=== PATIENT | female | born 1930 | race African-American/Black ===

== ENCOUNTER 2019-04-14 08:27 | Observation (INO) | payer OTHER, MEDICARE ==
--- NOTE | 2019-04-14 08:54 | PDOC ---
History of Present Illness - General Chief Complaint: Injury Stated Complaint: FALL/Dehydrated/Poor Appetite Time Seen by Provider: 04/14/19 08:54 - History of Present Illness Initial Comments: 88 year old with PMH of HTN presenting with globus sensation x 2 weeks after drinking clove water and episode of lightheadedness and fall this morning. States that she has been very weak and dehydrated over the past two weeks because of a sensation as if there is something stuck in her throat after eating this clove water concoction. She has had this mixture in the past with cinnamon as she believes it helps her with her daily joint pains. 04/14/19 10:52 Past History - Past Medical History Allergies/Adverse Reactions: Allergies Allergy/AdvReac Type Severity Reaction Status Date / Time No Known Allergies Allergy Verified 04/14/19 08:29 Home Medications: Ambulatory Orders Amlodipine Besylate 5 mg PO DAILY 04/14/19 Mirtazapine 7.5 mg PO HS 04/14/19 Cardiac Disorders: Yes (LEAKY VALVE) COPD: No HTN: Yes (CONTROLLED) - Immunization History Immunization Up to Date: No - Psycho Social/Smoking Cessation Hx Smoking History: Never smoked Have you smoked in the past 12 months: No Information on smoking cessation initiated: No Hx Alcohol Use: No Drug/Substance Use Hx: No *Physical Exam - Vital Signs Last Vital Signs Temp Pulse Resp BP Pulse Ox 70 16 125/73 98 04/14/19 08:31 04/14/19 08:31 04/14/19 08:31 04/14/19 08:31 ED Treatment Course - LABORATORY CBC & Chemistry Diagram: 04/14/19 10:04 04/14/19 10:04 Medical Decision Making - Medical Decision Making 88 year old with weakness/ presyncope with fall and globus sensation with continued weakness despite 1 L NS. Cause of weakness is likely malnutrition/ dehydration. Although gait improved, she is still too weak to ambulate without assistance or monitoring. 04/14/19 14:49 Discharge - Discharge Information Condition: Stable - Follow up/Referral Referrals: Jasson Huston MD [Primary Care Provider] - - Patient Discharge Instructions - Post Discharge Activity
[2019-04-14 10:32] LABS: BASO % 0.2 % (0-2.0); EOS % 0.4 % (0-4.5); HEMATOCRIT 49.2 % (32.4-45.2); HEMOGLOBIN 16.1 GM/dL (10.7-15.3); MCH 31.2 pg (25.7-33.7); MCHC 32.8 g/dl (32.0-36.0); MEAN CELL VOLUME 95.4 fl (80-96); MEAN PLT VOLUME 9.6 fl (7.5-11.1); NEUT % 86.4 % (42.8-82.8); PLATELET COUNT 166 K/MM3 (134-434); RBC 5.16 M/mm3 (3.60-5.2); RDW 13.2 % (11.6-15.6); WHITE BLOOD COUNT 7.9 K/mm3 (4.0-10.0)
[2019-04-14 11:04] LABS: ALBUMIN 3.5 g/dl (3.4-5.0); BILIRUBIN,TOTAL 1.1 mg/dL (0.2-1); BLOOD UREA NITROGEN 20.9 mg/dL (7-18); CALCIUM 10.3 mg/dL (8.5-10.1); CREATININE 1.1 mg/dL (0.55-1.3); POTASSIUM 4.7 mmol/L (3.5-5.1); TOT PROT 6.9 g/dl (6.4-8.2)
[2019-04-14 11:31] LABS: INR 0.97 (0.83-1.09); PROTHROMBIN TIME (PATIENT) 11.4 SEC (9.7-13.0)
[2019-04-14] MEDS ORDERED: SODIUM CHLORIDE 1,000 ML IV ONE (11:32)
--- NOTE | 2019-04-14 11:38 | CONSULT ---
Admitting History and Physical - Admission History of Present Illness: 88 year old with PMH of HTN presenting with globus sensation x 2 weeks after drinking clove water CXR (-) Pt developed a fear of eating/drinking following an incident where she accidentally swallowed a clove while drinking clove water. She has been seen by ENT, Dr Temple as well as a Psychiatrist who prescribed a pill which she only took once after reading the side effects. Her family is concerned, trying to encourage her to eat/drink with rare success. Selected Entries 04/14/19 08:31 Blood Pressure 125/73 Weight 86 lb Laboratory Tests 04/14/19 04/14/19 10:04 10:04 WBC 7.9 BUN 20.9 H - Smoking History Smoking history: Never smoked Have you smoked in the past 12 months: No - Alcohol/Substance Use Hx Alcohol Use: No History - Admission Reason For Visit: FALL - Diagnostics X-ray: Report Reviewed (CXR (-)) Modified Barium Swallow: Report Reviewed (04/27/18 mbs (-). r/o laryngopharyngeal reflux. Rec made.) - General Mental Status: Alert and Oriented, Awake and Alert, Able to Follow Commands, Anxious Attention: Intact Ability to Follow Directions: Excellent Head/Neck Control: WFL - Hearing Hearing: Functional Speech Evaluation - Communication Primary Language: KOREAN Communication: Yes: Within Normal Limits Oral Expression Ability: Yes: No Impairment - Speech Production Able to Make Needs Known: Yes: WNL Intelligibility: Yes: WNL - Speech Characteristics Voice Loudness: Normal Voice Pitch: Yes: Normal Voice Phonatory-based Quality: Yes: Normal Speech Pattern: Normal Speech Clarity: < 100% Nasal Resonance: Normal Articulation: Yes: Precise Rate of Speech: Intact - Language/Auditory Comprehension Follows: Yes: 2 Stage Simple Commands - Language/Verbal Expression Able to Respond to Simple Queries: Yes: WNL Able to Communicate Wants and Needs: Yes: WNL Functional Communication Status: Yes: WNL - Swallow Evaluation/Bedside Assessment Current Nutritional Intake: NPO Oral Secretions: Yes: WFL Dentition: Yes: Adequate, Missing Teeth Facial Symmetry at Rest: Symmetrical Facial Symmetry on Retraction: Symmetrical Facial Movement: Controlled Sensation: Normal Against Resistance Opening: Normal Against Resistance Closing: Normal Pucker Lips: Normal Smile: Normal Lingual Movement: Normal, Symmetric Lingual Speed of Movement: Normal Lingual Movement Strgth Against Opposition: Normal Lingual Movement Characteristics: Normal Velopharyngeal Movement: Normal Laryngeal Elevation: WFL Rate of Intake: WFL Bolus Size: WFL Labial Seal: WFL Oral Prep Time: WFL A-P Transit: WFL Timing of Swallow: WFL Coughing/Throat Clear: No Change in Voice: No Recommendations - Speech Evaluation, Impression/Plan Impression: Fear of swallowing after swallowing a clove. r/o Dysphagia. Globus sensation? LPR, Globus Hystericus/Conversion disorder. Anxious. Oriented and appropriate - Dysphagia Impressions/Plan Dysphagia Impressions: Ongoing Evaluation *Silent aspiration: cannot be R/O at bedside Recommendations: CARRIE Guido
--- NOTE | 2019-04-14 11:39 | PDOC ---
Attending Attestation - Resident Resident Name: Kathy Cerna - ED Attending Attestation I have performed the following: I have examined & evaluated the patient, The case was reviewed & discussed with the resident, I agree w/resident's findings & plan - HPI HPI: 04/14/19 11:34 88-year-old female with history of mitral valve prolapse and hypertension well- controlled, high functioning with full ADLs presents brought in family with episode of lightheadedness near syncope this morning. Patient was in her usual state of normal health until about 1 or 2 weeks ago when she swallowed a clove, since then has been having difficulty swallowing with decreased oral intake and self-admitted dehydration. She saw ENT and was noted to have slight irritation but no blockage or obstruction, was scheduled to see speech and swallow therapist. In the setting, was standing in her kitchen this morning, developed lightheadedness without loss of consciousness or fall, lowered herself to the ground without injury, presents for evaluation. Denies any cardiopulmonary complaints, denies any volume loss such as vomiting or diarrhea, denies any infectious complaints such as fever/chills/dysuria. last cardiac eval per report with Dr. Aguilar this year, had ekg (lbbb) and echo in office. - Physicial Exam PE: 04/14/19 11:35 Exam is atraumatic Dry mucosa Heart is regular without audible murmur, lungs are clear with slightly decreased breath sounds at the bases bilaterally Abdomen benign No edema Neurologically intact - Medical Decision Making 04/14/19 11:35 88-year-old female with episode of lightheadedness and near syncope in the setting of dehydration secondary to difficulty swallowing. Hemodynamically stable here, low suspicion for arrhythmia or ACS, no traumatic injury. Labs, urinalysis EKG, chest x-ray IV fluid rehydration Reassess. Patient is currently clinically orthostatic, concern is for inability to tolerate p.o. Will discuss with swallow therapy, rehydrate, and reassess. Discuss dispo with Dr. Huston and Dr. Aguilar Heart Score/ECG Review #1 ECG reviewed & interpreted by me at: 10:13 General ECG Interpretation: Sinus Rhythm (with APCs noted), Normal Rate (75), Normal Intervals (LBBB (per pt report, old), qtc 473), No acute ischemic changes
--- NOTE | 2019-04-14 17:40 | HP ---
CHIEF COMPLAINT: poor po intake, dizziness, inability to swallow PCP: HISTORY OF PRESENT ILLNESS: Patient is a 88 year old female with a significant past medical history of hypertension who presents to the ED with globus sensation x 2 weeks after drinking clove water. She also reports an episode of lightheadedness and fall this morning. Patient has been feeling weaker and dehydrated over the past two weeks. She has had poor PO intake because of the continued sensation as if there is something stuck in her throat. Patient states symptoms of globus sensation occurred after she drank clove water which helps her with her joint pain. She reports concentrated urine, dry tongue and poor skin turgor. ER course was notable for: (1) mbs (2) clinical dehydration (3) Recent Travel: PAST MEDICAL HISTORY: PAST SURGICAL HISTORY: Social History: Smoking: none Alcohol: none Drugs: none Allergies No Known Allergies Allergy (Verified 04/14/19 08:29) HOME MEDICATIONS: Home Medications Medication Instructions Recorded Amlodipine Besylate 5 mg PO DAILY 04/14/19 Mirtazapine 7.5 mg PO HS 04/14/19 REVIEW OF SYSTEMS PHYSICAL EXAMINATION Vital Signs - 24 hr 04/14/19 04/14/19 04/14/19 08:31 12:30 13:00 Temperature Pulse Rate 70 Pulse Rate [ 88 Left] Respiratory 16 17 Rate Blood Pressure 125/73 Blood Pressure 124/78 [Left Arm] O2 Sat by Pulse 98 97 99 Oximetry (%) 04/14/19 17:07 Temperature 97.7 F Pulse Rate Pulse Rate [ 100 H Left] Respiratory 17 Rate Blood Pressure Blood Pressure 118/64 [Left Arm] O2 Sat by Pulse 99 Oximetry (%) GENERAL: Awake, alert, and fully oriented, in no acute distress. pleasant elderly female in no acute distress. HEAD: Normal with no signs of trauma. EYES: Pupils equal, round and reactive to light, extraocular movements intact, sclera anicteric, conjunctiva clear. No lid lag. EARS, NOSE, THROAT: Ears normal, nares patent, oropharynx clear without exudates. Moist mucous membranes. NECK: Normal range of motion, supple without lymphadenopathy, JVD, or masses. LUNGS: Breath sounds equal, clear to auscultation bilaterally. HEART: Regular rate and rhythm, ABDOMEN: Soft, nontender, not distended, normoactive bowel sounds, no guarding, no rebound, no masses. No hepatomegaly or splenomegaly. MUSCULOSKELETAL: Normal range of motion at all joints. No bony deformities or tenderness. No CVA tenderness. UPPER EXTREMITIES: No peripheral edema. LOWER EXTREMITIES: No peripheral edema. NEUROLOGICAL: Normal speech. Normal gait. PSYCHIATRIC: Cooperative. Good eye contact. Appropriate mood and affect. SKIN: dry Laboratory Results - last 24 hr 04/14/19 04/14/19 04/14/19 10:04 10:04 10:04 WBC 7.9 RBC 5.16 Hgb 16.1 H Hct 49.2 H MCV 95.4 MCH 31.2 MCHC 32.8 RDW 13.2 Plt Count 166 MPV 9.6 Absolute Neuts (auto) 6.8 Neutrophils % 86.4 H Lymphocytes % 7.0 L Monocytes % 6.0 Eosinophils % 0.4 Basophils % 0.2 Nucleated RBC % 0 PT with INR 11.40 INR 0.97 Sodium 139 Potassium 4.7 Chloride 102 Carbon Dioxide 25 Anion Gap 12 BUN 20.9 H Creatinine 1.1 Est GFR (CKD-EPI)AfAm 52.28 Est GFR (CKD-EPI)NonAf 45.11 Random Glucose 85 Calcium 10.3 H Total Bilirubin 1.1 H AST 27 ALT 16 Alkaline Phosphatase 109 Troponin I Total Protein 6.9 Albumin 3.5 04/14/19 10:04 WBC RBC Hgb Hct MCV MCH MCHC RDW Plt Count MPV Absolute Neuts (auto) Neutrophils % Lymphocytes % Monocytes % Eosinophils % Basophils % Nucleated RBC % PT with INR INR Sodium Potassium Chloride Carbon Dioxide Anion Gap BUN Creatinine Est GFR (CKD-EPI)AfAm Est GFR (CKD-EPI)NonAf Random Glucose Calcium Total Bilirubin AST ALT Alkaline Phosphatase Troponin I < 0.02 Total Protein Albumin ASSESSMENT/PLAN: Family Medical History Family History: Denies Problem List - Problem (1) Globus sensation Assessment/Plan: mbs noted, started on soft diet and monitor speech and swallow following start ivf hydration overnight and repeat a.m. labs aspiration precautions. Code(s): R09.89 - OTH SYMPTOMS AND SIGNS INVOLVING THE CIRC AND RESP SYSTEMS (2) Hypertension Assessment/Plan: continue home meds Code(s): I10 - ESSENTIAL (PRIMARY) HYPERTENSION (3) Dizziness Assessment/Plan: gait steady on exam, no dizziness physical therapy Code(s): R42 - DIZZINESS AND GIDDINESS Visit type - Emergency Visit Emergency Visit: Yes ED Registration Date: 04/14/19 Care time: The patient presented to the Emergency Department on the above date and was hospitalized for further evaluation of their emergent condition. - New Patient This patient is new to me today: Yes Date on this admission: 04/14/19 - Critical Care Critical Care patient: No
[2019-04-14] MEDS ORDERED: SODIUM CHLORIDE 1,000 ML IV SCH (18:15)
[2019-04-14 18:19] VITALS: BMI 16.9
[2019-04-14] MEDS ORDERED: ACETAMINOPHEN 325 MG TABLET (FP) PO PRN (18:34)
[2019-04-14 19:36] LABS: EPI CELLS 8.5 /HPF (0-5/HPF); HYALINE CASTS 43 /lpf (0-8); URINE APPEARANCE CLOUDY; URINE BACTERIA 32.3 /hpf (NEGATIVE); URINE BILIRUBIN NEGATIVE (NEGATIVE); URINE COLOR DK YELLOW; URINE GLUCOSE (UA) NEGATIVE (NEGATIVE); URINE KETONE 2+ (NEGATIVE); URINE LEUK ESTERASE TRACE (NEGATIVE); URINE NITRITE NEGATIVE (NEGATIVE); URINE PROTEIN TRACE (NEGATIVE); URINE RBC 2 /hpf (0-4); URINE WBC 12 /hpf (0-5)
[2019-04-14] MEDS ORDERED: MIRTAZAPINE 15 MG TABLET (FP) PO SCH (22:00)
[2019-04-15 06:14] VITALS: TEMP 97.8
[2019-04-15 08:26] LABS: HEMATOCRIT 39.8 % (32.4-45.2); HEMOGLOBIN 13.4 GM/dL (10.7-15.3); MCH 31.5 pg (25.7-33.7); MCHC 33.7 g/dl (32.0-36.0); MEAN CELL VOLUME 93.4 fl (80-96); MEAN PLT VOLUME 9.8 fl (7.5-11.1); PLATELET COUNT 139 K/MM3 (134-434); RBC 4.25 M/mm3 (3.60-5.2); RDW 13.1 % (11.6-15.6); WHITE BLOOD COUNT 3.6 K/mm3 (4.0-10.0)
[2019-04-15 09:31] LABS: BLOOD UREA NITROGEN 14.5 mg/dL (7-18); CALCIUM 9.1 mg/dL (8.5-10.1); CREATININE 0.8 mg/dL (0.55-1.3); POTASSIUM 3.6 mmol/L (3.5-5.1)
[2019-04-15] MEDS ORDERED: amLODIPine BESYLATE 5 MG TABLET (FP) PO SCH (10:00)
[2019-04-15 10:36] VITALS: PULSE 75
--- NOTE | 2019-04-15 12:06 | PN ---
Progress Note, TRAVELING INVENTORY ASSOCIATE - Note Progress Note: Alert, oriented, avoiding eye contact, feels sad, says she "doesn't know how she 'll get from one point to another". Eating more/tolerating diet. Selected Entries 04/14/19 04/14/19 04/14/19 17:07 18:11 22:00 Breakfast Supper 50% Temperature 97.7 F 98.2 F 04/15/19 04/15/19 04/15/19 06:00 10:29 10:35 Breakfast 75% Supper Temperature 97.8 F 97.8 F Laboratory Tests 04/15/19 06:35 WBC 3.6 L Reviewed with PRECISION INSPECTOR/PCP.
--- NOTE | 2019-04-15 12:45 | PN ---
Physical Exam: SUBJECTIVE: Patient seen and examined at the bedside. tolerating diet without difficulty, denies chest pain or shortness of breath. OBJECTIVE: she is noted to be more withdrawn today, less interactive appears clinically depressed discussed with her PCP Dr. Huston who informed me that patient diagnosed with depression and started on remeron a few weeks ago. unsure of compliance. she is now more withdrawn and not interactive. will ask psych to evaluate as she may need her medications adjusted. currently on remeron. BP elevated today, therefore IVF discontinued. Vital Signs Period Temp Pulse Resp BP Sys/Ruiz Pulse Ox Last 24 Hr 97.7 F-98.2 F 69-100 17-107 106-163/52-104 97-99 GENERAL: Awake, alert, withdrawan. pleasant elderly female in no acute distress. HEAD: Normal with no signs of trauma. EYES: Pupils equal, round and reactive to light, extraocular movements intact, sclera anicteric, conjunctiva clear. No lid lag. EARS, NOSE, THROAT: Ears normal, nares patent, oropharynx clear without exudates. Moist mucous membranes. NECK: Normal range of motion, supple without lymphadenopathy, JVD, or masses. LUNGS: Breath sounds equal, diminished at the bases. HEART: Regular rate and rhythm, ABDOMEN: Soft, nontender, not distended, normoactive bowel sounds, no guarding, no rebound, no masses. No hepatomegaly or splenomegaly. MUSCULOSKELETAL: Normal range of motion at all joints. No bony deformities or tenderness. No CVA tenderness. UPPER EXTREMITIES: No peripheral edema. LOWER EXTREMITIES: No peripheral edema. NEUROLOGICAL: Normal speech. Normal gait. anxious, withdrawn, less interactive PSYCHIATRIC: Cooperative. Good eye contact. Appropriate mood and affect. SKIN: dry Laboratory Results - last 24 hr 04/14/19 04/15/19 04/15/19 18:25 06:35 06:35 WBC 3.6 L RBC 4.25 Hgb 13.4 Hct 39.8 D MCV 93.4 MCH 31.5 MCHC 33.7 RDW 13.1 Plt Count 139 MPV 9.8 Sodium 144 Potassium 3.6 Chloride 110 H Carbon Dioxide 27 Anion Gap 7 L BUN 14.5 Creatinine 0.8 Est GFR (CKD-EPI)AfAm 76.83 Est GFR (CKD-EPI)NonAf 66.29 Random Glucose 77 Calcium 9.1 Urine Color Dk yellow Urine Appearance Cloudy Urine pH 5.0 Ur Specific [place] 1.024 Urine Protein Trace Urine Glucose (UA) Negative Urine Ketones 2+ H Urine Blood Negative Urine Nitrite Negative Urine Bilirubin Negative Urine Urobilinogen 1.0 Ur Leukocyte Esterase Trace Urine WBC (Auto) 12 Urine RBC (Auto) 2 Urine Casts (Auto) 43 U Pathogenic Cast Auto U Epithel Cells (Auto) 8.5 U Sm Round Cell (Auto) None Urine Bacteria (Auto) 32.3 Active Medications Generic Name Dose Route Start Last Admin Trade Name Freq PRN Reason Stop Dose Admin Acetaminophen 650 mg 04/14/19 18:34 Tylenol - PO Q6H PRN PAIN LEVEL 6-10 Amlodipine Besylate 5 mg 04/15/19 10:00 04/15/19 10:15 Norvasc - PO 5 mg DAILY JOSE Administration Mirtazapine 7.5 mg 04/14/19 22:00 04/14/19 21:35 Remeron - PO 7.5 mg HS JOES Administration ASSESSMENT/PLAN: Problem List - Problems (1) Globus sensation Assessment/Plan: mbs noted, started on soft diet and tolerating. no difficulty with swallowing reported. speech and swallow following stof ivf as pt bp is elevated. a.m. labs shows improvement of dehydration aspiration precautions maintained Code(s): R09.89 - OTH SYMPTOMS AND SIGNS INVOLVING THE CIRC AND RESP SYSTEMS (2) Hypertension Assessment/Plan: continue home meds of amlodopine 5mg increase if bp remains elevated stop ivf. Code(s): I10 - ESSENTIAL (PRIMARY) HYPERTENSION (3) Dizziness Assessment/Plan: ambulated with PT, but patient did not participate fully. continue PT. patient had falls at home, but denies hitting her head. son confirms she did not hit her head. Code(s): R42 - DIZZINESS AND GIDDINESS (4) Depression Assessment/Plan: started on remeron 7.5mg as an outpatient. psych consulted for further recommendations. depression likely contributing to decreased PO intake Code(s): F32.9 - MAJOR DEPRESSIVE DISORDER, SINGLE EPISODE, UNSPECIFIED (5) Dehydration Assessment/Plan: resolved. encourage oral hydration. Code(s): E86.0 - DEHYDRATION (6) DVT prophylaxis Assessment/Plan: SCDs Code(s): Z29.9 - ENCOUNTER FOR PROPHYLACTIC MEASURES, UNSPECIFIED Visit type - Emergency Visit Emergency Visit: Yes ED Registration Date: 04/14/19 Care time: The patient presented to the Emergency Department on the above date and was hospitalized for further evaluation of their emergent condition. - New Patient This patient is new to me today: No - Critical Care Critical Care patient: No - Discharge Referral Referred to [facility] No
[2019-04-15 12:48] VITALS: BP 147/80
--- NOTE | 2019-04-15 12:56 | EKG ---
Test Reason : Blood Pressure : / mmHG Vent. Rate : 075 BPM Atrial Rate : 075 BPM P-R Int : 160 ms QRS Dur : 142 ms QT Int : 424 ms P-R-T Axes : -05 -58 058 degrees QTc Int : 473 ms SINUS RHYTHM WITH PREMATURE ATRIAL COMPLEXES IN A PATTERN OF BIGEMINY LEFT AXIS DEVIATION LEFT BUNDLE BRANCH BLOCK ABNORMAL ECG WHEN COMPARED WITH ECG OF 19-JAN-2002 09:26, PREMATURE ATRIAL COMPLEXES ARE NOW PRESENT Confirmed by DELFNIO WOLF MD ([id number]) on 04/15/2019 12:56:21 PM Referred By: Confirmed By:DELFINO WOLF MD
--- NOTE | 2019-04-15 17:17 | CON.PSY ---
Psychiatry Consult Chief Complaint: 88 [place]ang[place] old female seen for Psych eval. Admitted with Dehydration and ? weight Loss. Patient reports feeling depressed. on Remeron , reports difficulty swallowing. Symptoms: reports: Depressed Mood, Anhedonia - Previous Psychiatric Treatment Outpatient: None Inpatient: None - Previous Substance Abuse Treatment Outpatient: None Inpatient: None - Reason for Previous Treatment Reason for Previous Treatment: Major Depression - Current Medications Current Medications: Active Medications Acetaminophen (Tylenol -) 650 mg PO Q6H PRN PRN Reason: PAIN LEVEL 6-10 Amlodipine Besylate (Norvasc -) 5 mg PO DAILY JOSE Last Admin: 04/15/19 10:15 Dose: 5 mg - Allergies Allergies: Allergies Allergy/AdvReac Type Severity Reaction Status Date / Time No Known Allergies Allergy Verified 04/14/19 08:29 - Current Living Status Usual Living Arrangement: Alone - Current Mental Status Evaluation Appearance: Well Groomed Attitude: Cooperative - Affect Affect: Constrictive Appropriateness: Appropriate to Content - Mood Mood: Depressed - Speech/Language Expressive: Coherent - Psychomotor Activity Psychomotor Activity: Slowed - Thought Process Thought Process: Intact - Thought Content Hallucinations: Absent Delusions: Absent - Self Perception Self Perception: No Impairment - Cognition Attention: Alert Orientation: Time Memory, Immediate Recall: Intact Memory, Short Term: 3/3 Memory, Remote with Promptin/3 - Concentration Serial Sevens Intact: Yes Simple Calculations Intact: Yes - Abstraction Proverb Interpretation: Intact Judgement: Minimally Impaired - Insight Insight: Intact - Impulse Control Impulse Control: Minimally Impaired - Suicidal Ideation Suicidal Ideation: No - Homicidal Ideation Homicidal Ideation: No Assessment/Plan 1) increase Remeron 15mg po hs.
--- NOTE | 2019-04-15 17:43 | DS ---
Physical Exam: SUBJECTIVE: Patient seen and examined OBJECTIVE: she is noted to be more withdrawn today, less interactive appears clinically depressed discussed with her PCP Dr. Huston who informed me that patient diagnosed with depression and started on remeron a few weeks ago. unsure of compliance. she is now more withdrawn and not interactive. psych evaluated and increased remeron to 15mg at hs from 7.5mg. patient to follow up with per PCP on d/c. BP improved after ivf discontinued. patient for discharge home. son will be taking her home, POC discussed with son. Vital Signs Period Temp Pulse Resp BP Sys/Ruiz Pulse Ox Last 24 Hr 97.8 F-98.2 F 69-95 20-107 106-163/52-104 97-97 PHYSICAL EXAM GENERAL: The patient is awake, alert, and fully oriented, in no acute distress. HEAD: Normal with no signs of trauma. EYES: PERRL, extraocular movements intact, sclera anicteric, conjunctiva clear. ENT: Ears normal, nares patent, oropharynx clear without exudates, moist mucous membranes. NECK: Trachea midline, full range of motion, supple. LUNGS: Breath sounds equal, clear to auscultation bilaterally, no wheezes, no crackles, no accessory muscle use. HEART: Regular rate and rhythm, S1, S2 without murmur, rub or gallop. ABDOMEN: Soft, nontender, nondistended, normoactive bowel sounds, no guarding, no rebound, no hepatosplenomegaly, no masses. EXTREMITIES: 2+ pulses, warm, well-perfused, no edema. NEUROLOGICAL: Cranial nerves II through XII grossly intact. Normal speech, gait not observed. PSYCH: Normal mood, normal affect. SKIN: Warm, dry, normal turgor, no rashes or lesions noted. LABS Laboratory Results - last 24 hr 04/14/19 04/15/19 04/15/19 18:25 06:35 06:35 WBC 3.6 L RBC 4.25 Hgb 13.4 Hct 39.8 D MCV 93.4 MCH 31.5 MCHC 33.7 RDW 13.1 Plt Count 139 MPV 9.8 Sodium 144 Potassium 3.6 Chloride 110 H Carbon Dioxide 27 Anion Gap 7 L BUN 14.5 Creatinine 0.8 Est GFR (CKD-EPI)AfAm 76.83 Est GFR (CKD-EPI)NonAf 66.29 Random Glucose 77 Calcium 9.1 Urine Color Dk yellow Urine Appearance Cloudy Urine pH 5.0 Ur Specific [place] 1.024 Urine Protein Trace Urine Glucose (UA) Negative Urine Ketones 2+ H Urine Blood Negative Urine Nitrite Negative Urine Bilirubin Negative Urine Urobilinogen 1.0 Ur Leukocyte Esterase Trace Urine WBC (Auto) 12 Urine RBC (Auto) 2 Urine Casts (Auto) 43 U Pathogenic Cast Auto U Epithel Cells (Auto) 8.5 U Sm Round Cell (Auto) None Urine Bacteria (Auto) 32.3 HOSPITAL COURSE: Date of Admission:04/14/19 Date of Discharge: 04/15/19 Minutes to complete discharge: 45 Discharge Summary Problems reviewed: Yes Reason For Visit: WEAKNESS;FALL Current Active Problems DVT prophylaxis (Acute) Dehydration (Acute) Depression (Acute) Dizziness (Acute) Globus sensation (Acute) Hypertension (Acute) Condition: Stable - Instructions Diet, Activity, Other Instructions: please follow up with your PCP within 3-5 days of discharge Thank you for allowing us to care for you. Remeron increased to 15mg at night and called into [facility]. Referrals: Jasson Huston MD [Primary Care Provider] - Disposition: HOME - Home Medications Comprehensive Discharge Medication List: Ambulatory Orders Amlodipine Besylate 5 mg PO DAILY 04/14/19 Mirtazapine [Remeron -] 15 mg PO HS #30 tablet 04/15/19 Problem List - Problems (1) Globus sensation Assessment/Plan: mbs noted, started on soft diet and tolerating. no difficulty with swallowing reported. speech and swallow following. can follow up with speech and swallow as an outpatient. a.m. labs shows improvement of dehydration aspiration precautions maintained Code(s): R09.89 - OTH SYMPTOMS AND SIGNS INVOLVING THE CIRC AND RESP SYSTEMS (2) Hypertension Assessment/Plan: continue home meds of amlodopine 5mg bp improved off ivf. Code(s): I10 - ESSENTIAL (PRIMARY) HYPERTENSION (3) Dizziness Assessment/Plan: ambulated with PT patient had falls at home, but denies hitting her head. son confirms she did not hit her head. Code(s): R42 - DIZZINESS AND GIDDINESS (4) Depression Assessment/Plan: started on remeron 7.5mg as an outpatient. psych consulted and recommended remeron 15mg at hs. patient to follow up outpatient Code(s): F32.9 - MAJOR DEPRESSIVE DISORDER, SINGLE EPISODE, UNSPECIFIED (5) Dehydration Assessment/Plan: resolved. encourage oral hydration. Code(s): E86.0 - DEHYDRATION (6) DVT prophylaxis Assessment/Plan: SCDs Code(s): Z29.9 - ENCOUNTER FOR PROPHYLACTIC MEASURES, UNSPECIFIED This patient is new to me today: No Emergency Visit: Yes ED Registration Date: 04/14/19 Care time: The patient presented to the Emergency Department on the above date and was hospitalized for further evaluation of their emergent condition. Critical Care patient: No - Discharge Referral Referred to [facility] Med P.C.: No
[2019-04-15] MEDS ORDERED: MIRTAZAPINE 15 MG TABLET (FP) PO SCH (22:00)
== END 2019-04-15 18:32 | disposition home or self-care (01) ==
LOC: JER 08:27 → JERBED 10:28 → INTOOBSV 10:28 → J6S 17:37
PROVIDERS: ADMIT Internal Medicine; ATTEND Nurse Practitioner Family
PROC: 3E0337Z Introduction of Electrolytic and Water Balance Substance into Peripheral Vein, Percutaneous Approach (ICD-10-PCS; principal; 2019-04-14)
DX: E86.0 Dehydration (principal); R53.1 Weakness; R09.89 Other specified symptoms and signs involving the circulatory and respiratory systems; I10 Essential (primary) hypertension; R42 Dizziness and giddiness; I34.1 Nonrheumatic mitral (valve) prolapse; F32.9 Major depressive disorder, single episode, unspecified; Z29.8 Encounter for other specified prophylactic measures; W19.XXXA Unspecified fall, initial encounter; Y93.9 Activity, unspecified; Y92.9 Unspecified place or not applicable
CPT/HCPCS: 36415; 71045-TC-FY; 74230-TC-FY; 80048; 80053; 81003; 84484; 85025; 85027; 85610; 87086; 92611-GN; 93005; 93010; 96360; 97116-GP; 97161-GP; 99285-25; G0378; J7030